=== PATIENT | female | born 1965 | race Hispanic/Latino ===

== ENCOUNTER 2017-12-31 13:07 | Emergency (ER) | payer OTHER ==
[~2017-12-31] VITALS: Ht 175.3 cm; Wt 124.3 kg
[2017-12-31] MEDS ORDERED: LISINOPRIL10 MG PO (14:12)
[2017-12-31] MEDS ORDERED: JANUMET 50-1,01 EACH (14:12)
[2017-12-31] MEDS ORDERED: CETIRIZINE HCL10 MG (14:13)
[2017-12-31] MEDS ORDERED: VICTOZA 2-0.6 MG/0.1 (14:13)
[2017-12-31 14:26] VITALS: BP 136/80
== END 2017-12-31 13:44 | disposition home or self-care (01) ==
LOC: FSED 13:07
DX: S00.83XA Contusion of other part of head, initial encounter (principal); V19.88XA Pedal cyclist (driver) (passenger) injured in other specified transport accidents, initial encounter; Y92.008 Other place in unspecified non-institutional (private) residence as the place of occurrence of the external cause; E66.01 Morbid (severe) obesity due to excess calories
CPT/HCPCS: 99282

== ENCOUNTER → 2020-01-27 | Outpatient (CLI) | payer OTHER ==
[~2020-01-27] MED LIST: ALLEGRA ALLERGY60 MG PO; CEFUROXIME500 MG PO; CETIRIZINE HCL10 MG; GLYBURIDE-METF1 EAC1 PO; HYDROCHLOROTHIA25 MG PO; JANUMET 50-1,01 EACH PO; LISINOPRIL10 MG PO; MULTIVITAMINS1 EAC7 PO; NITROFURANTOIN100 MG PO; VICTOZA 2-0.6 MG/0.1 SQ; VITAMIN C1000 MG PO; VITAMIN D35000 UNI2 PO; [UNRECOGNIZED DRUG - OTHER] PO
--- NOTE | 2020-01-27 13:38 | Diagnostic Imaging Report ---
X-ray KUB History: Kidney stone Findings: The study is submitted on 2 images. There is no calcific density overlying the kidneys or the course of the ureters or bladder to suggest a radiopaque calculus. Bowel gas pattern unremarkable. Degenerative changes in the regional bones. Impression: No radiopaque calculus visualized. Signed by: Earnest Hendrix MD on 01/27/2020 1:34 PM
== END ==
LOC: RAD 11:30
PROVIDERS: ATTEND Urology
DX: N20.0 Calculus of kidney (principal)
CPT/HCPCS: 74018

== ENCOUNTER → 2020-04-16 | Outpatient (CLI) | payer OTHER ==
--- NOTE | 2020-04-16 15:48 | Diagnostic Imaging Report ---
Exam: KUB - 2 views Indication: Renal calculi Comparison: KUB of 01/27/2020 Findings: No radiographically apparent renal calculi. Nonobstructive bowel gas pattern. No free air. No acute osseous injury. Degenerative changes of the visualized spine. Phleboliths in the pelvis. Impression: No radiographically apparent urinary calculi. Signed by: Juan Washington MD on 04/16/2020 3:44 PM
== END ==
LOC: RAD 15:23
PROVIDERS: ATTEND Urology
DX: N20.0 Calculus of kidney (principal)
CPT/HCPCS: 74018

== ENCOUNTER → 2020-07-16 | Outpatient (CLI) | payer OTHER ==
--- NOTE | 2020-07-16 15:11 | Diagnostic Imaging Report ---
Abdomen, one view INDICATION: ^[id number] ^[id number] ^CALCULUS OF KIDNEY Comparison: 04/16/2020. Discussion: No radiographically apparent urinary calculi. Nonobstructive bowel gas pattern. No acute osseous abnormality. IMPRESSION: No radiographic apparent urinary calculi. Signed by: Hayes Mclain MD on 07/16/2020 3:08 PM
== END ==
LOC: RAD 14:22
PROVIDERS: ATTEND Urology
DX: N20.0 Calculus of kidney (principal)
CPT/HCPCS: 74018

== ENCOUNTER → 2020-10-17 | Outpatient (CLI) | payer OTHER | LOC: RAD 09:11 | PROVIDERS: ATTEND Urology | DX: N20.0 Calculus of kidney (principal) | CPT/HCPCS: 74018 ==

== ENCOUNTER → 2021-04-16 | Outpatient (CLI) | payer OTHER | LOC: RAD 07:47 | PROVIDERS: ATTEND Urology | DX: N20.0 Calculus of kidney (principal) | CPT/HCPCS: 74018 ==

== ENCOUNTER → 2021-10-15 | Outpatient (CLI) | payer OTHER | LOC: RAD 13:21 | PROVIDERS: ATTEND Urology | DX: N20.0 Calculus of kidney (principal) | CPT/HCPCS: 74018 ==

== ENCOUNTER → 2023-03-02 | Outpatient (CLI) | payer BC | LOC: RAD 14:13 | PROVIDERS: ATTEND Urology | DX: N20.0 Calculus of kidney (principal) | CPT/HCPCS: 74018 ==